=== PATIENT | male | born 1960 | race Caucasian/White ===

== ENCOUNTER 2018-01-27 09:15 | Emergency (ER) | payer BC, OTHER ==
[~2018-01-27] VITALS: Ht 175.3 cm; Wt 78.0 kg
--- OUTSIDE RECORDS SUMMARY | 2018-01-27 09:21 | XMS REPORT ---
Author Author LUIS GREEN Organization [facility] Address [address] [place] [address] Care Team Providers Care Employee Training Specialist Name Role Phone PETER LUIS Unavailable PROBLEMS Type Condition ICD9-CM Code HHG44-IA Code Onset Dates Condition Status SNOMED Code Problem Other emphysema J43.8 Active 32198258 Problem Uncomplicated alcohol dependence F10.20 Active 01415379 Problem Gastroesophageal reflux disease with esophagitis K21.0 Active 605159875 Problem Cigarette nicotine dependence without complication F17.210 Active 55613202 Problem Alcoholism F10.20 Active 1032891 Problem Depression, unspecified depression type F32.9 Active 61534971 Problem Pure hypercholesterolemia E78.00 Active 760707675 Problem Mood disorder F39 Active 52410577 ALLERGIES Substance Reaction Event Type Date Status Prozac 20 Mg Capsule Unknown Non Drug Allergy Aug, Active ENCOUNTERS Encounter Location Date Diagnosis [address] [address] Aug, Mood disorder F39 ; Pure hypercholesterolemia E78.00 and Gastroesophageal reflux disease with esophagitis K21.0 [place] [address] [address] May, [place] [address] [address] May, Bronchitis J40 ; Other emphysema J43.8 and Routine adult health maintenance Z00.00 [place] [address] [address] Apr, Routine adult health maintenance Z00.00 ; Pure hypercholesterolemia E78.00 and Cigarette nicotine dependence without complication F17.210 [place] [address] [address]- [address] September, [place] [address] [place] [id number] [place] [address]- 101[address] 14 Aug, 2016 [facility] [address] [place] [id number] [place] [address] 21789- 0606 Jul, Anxiety F41.9 [facility] [address] [place] [id number] [place] [address]19- 6258 May, Mood disorder F39 [facility] [address] [address]- [address] May, Mood disorder F39 and Alcoholism F10.20 [facility] [address] [place] [id number] [place] [address]- 1572 Apr, Depression, unspecified depression type F32.9 [facility] [address] [place] [id number] [place] [address] 16505- 3463 Mar, Other emphysema J43.8 [facility] [address] [place] [id number] [place] [address]9973- 3416 Feb, Uncomplicated alcohol dependence F10.20 [facility] [address] [place] [id number] [place] [address]99- 2233 September, Second degree hemorrhoids K64.1 [facility] [address] [place] [id number] [place] [address] 56224- 9918 September, [facility] [address] [place] [id number] [place] [address] 32130- 6907 14 Aug, 2014 [facility] [address] [place] [id number] [place] [address] 81321- 2045 Aug, [facility] [address] [place] [id number] [place] [address] 53315- 6821 Feb, [facility] [address] [place] [id number] [place] [address] 08271- 9036 Feb, [facility] [address] [place] [address] 9[address]40- 3952 Nov, [facility] [address] [facility] [id number] [place] [address] Nov, [facility] [place] [facility] [address] [id number] [place] [address] 5853 Aug, [facility] [place] [facility] [address] [id number] [place] [address] 87[address] Aug, [facility] [place] [facility] [address] [id number] [place] [address] 7964 Aug, [facility] [place] [facility] [address] [id number] [place] [address]- 5881 Aug, [facility] [place] [facility] [address] [id number] [place] [address]- 6293 Aug, [facility] [place] [facility] [address] [id number] [place] [address] 8577 Aug, [facility] [place] [facility] [address] [id number] [place] [address] 3766 Aug, [facility] [place] [facility] [address] [id number] [place] [address] 37[address] Aug, [facility] [place] [facility] [address] [id number] [place] [address]- 9453 Jul, [facility] [place] [facility] [address] [id number] [place] [address]- 3131 Jul, [facility] [place] [facility] [address] [id number] [place] [address]- 7354 Jul, [facility] [place] [facility] [address] [id number] [place] [address]- 4296 Jul, [facility] [place] [facility] [address] [id number] [place] [address]- 6738 Jul, [facility] [place] [facility] [address] [id number] [place] [address]- 2546 Jul, [facility] [place] [facility] [address] [id number] [place] [address]- 8536 Jul, [facility] [address] [facility] [id number] [place] [address]- 0317 Jul, [facility] [address] [facility] [id number] [place] [address]- 2386 Jul, [facility] [address] [facility] [id number] [place] [address]- 3468 Jul, [facility] [address] [facility] [id number] [place] [address]- 8725 Jun, [facility] [address] [facility] [id number] [place] [address]- 4156 Jun, [facility] [address] [facility] [id number] [place] [address]- 0467 Apr, [facility] [address] [address] 2147 Apr, [facility] [address] [facility] [id number], [place] [address]- 1254 Feb, [facility] [address] [place] [id number] [address] 290[address] Jan, [facility] [address] [id number] [address] 1416 Dec, [facility] [address] [place] [address]- 67[address] Dec, [facility] [address] [facility] [id number], [place] [address]- 9050 Nov, [facility] [address] [facility] [id number], [place] [address]- 6175 Nov, [facility] [address] [facility] [id number], [place] [address]- 7023 Jul, [facility] [address] [facility] [id number][place] [address]- 268[address] Jun, IMMUNIZATIONS No Known Immunizations SOCIAL HISTORY Never Assessed REASON FOR VISIT Physical, Having pain in RUQ for a few days. Notices more in the mornings. CBrumbackRN PLAN OF CARE VITAL SIGNS Height 71.3 in 2017-09-13 Weight 169.1 lbs 2017-09-13 Temperature 97.8 degrees Fahrenheit 2017-09-13 Heart Rate 58 bpm 2017-09-13 Respiratory Rate 18 2017-09-13 Oximetry on room air:97 % 2017-09-13 BMI 23.38 kg/m2 2017-09-13 Blood pressure systolic 130 mmHg 2017-09-13 Blood pressure diastolic 86 mmHg 2017-09-13 MEDICATIONS Medication Instructions Dosage Frequency Start Date End Date Duration Status Pravastatin Sodium 40 mg Orally Once a day 1 tablet 24h May, 30 day(s) Active Protonix 20 mg Orally Once a day 1 tablet 24h Aug, 30 day(s) Active HydrOXYzine HCl 25 MG TAKE ONE TABLET BY MOUTH ONCE DAILY NEEDED 30 Active Propranolol HCl 40 mg Orally Twice a day 1 tablet 12h 30 Active BusPIRone HCl 10 MG TAKE ONE TABLET BY MOUTH TWICE DAILY 60 Active RESULTS No Results PROCEDURES No Known procedures INSTRUCTIONS MEDICATIONS ADMINISTERED No Known Medications MEDICAL (GENERAL) HISTORY Type Description Date Medical History hypercholesterolemia Medical History anxiety
--- OUTSIDE RECORDS SUMMARY | 2018-01-27 09:21 | XMS REPORT ---
Author Author LUIS GREEN [facility] Address [address] [place] [address] Care Team Providers Care Shingles Roofer Helper Name Role Phone LUIS GREEN Unavailable PROBLEMS Type Condition ICD9-CM Code ZMP48-DA Code Onset Dates Condition Status SNOMED Code Problem Mood disorder F39 Active 17083790 Problem Alcoholism F10.20 Active 2206151 Problem Uncomplicated alcohol dependence F10.20 Active 56672698 Problem Depression, unspecified depression type F32.9 Active 43333939 Problem Other emphysema J43.8 Active 82336718 ALLERGIES No Information SOCIAL HISTORY Never Assessed PLAN OF CARE VITAL SIGNS MEDICATIONS Unknown Medications RESULTS No Results PROCEDURES No Known procedures IMMUNIZATIONS No Known Immunizations
--- OUTSIDE RECORDS SUMMARY | 2018-01-27 09:22 | XMS REPORT ---
Author Author KADE SIDHU Organization [facility] Address [address] [place] [address] Care Team Providers Care Sports Reporter Name Role Phone KADE SIDHU Unavailable PROBLEMS Type Condition ICD9-CM Code KTO79-FA Code Onset Dates Condition Status SNOMED Code Problem Other emphysema J43.8 Active 69325770 Problem Uncomplicated alcohol dependence F10.20 Active 31324605 Problem Gastroesophageal reflux disease with esophagitis K21.0 Active 585953219 Problem Cigarette nicotine dependence without complication F17.210 Active 33134279 Problem Alcoholism F10.20 Active 2852813 Problem Depression, unspecified depression type F32.9 Active 67499582 Problem Pure hypercholesterolemia E78.00 Active 082752266 Problem Mood disorder F39 Active 91851734 ALLERGIES No Information ENCOUNTERS Encounter Location Date Diagnosis [place] [id number] [address] Aug, Mood disorder F39 ; Pure hypercholesterolemia E78.00 and Gastroesophageal reflux disease with esophagitis K21.0 [facility] [address] [place] [id number] [place] [address]- [address] May, [facility] [address] [address]- [address] May, Bronchitis J40 ; Other emphysema J43.8 and Routine adult health maintenance Z00.00 [facility] [address] [place] [id number] [place] [address] 7[address]- 9950 Apr, Routine adult health maintenance Z00.00 ; Pure hypercholesterolemia E78.00 and Cigarette nicotine dependence without complication F17.210 [facility] [address] [place] [id number] [place] [address] 38774- 4002 September, [facility] [address] [address]- [address] 14 Aug, 2016 [facility] [address] [place] [id number] [place] [address] 29107- 6633 Jul, Anxiety F41.9 [facility] [address] [place] [id number] [place] [address] 80582- 3376 May, Mood disorder F39 [facility] [address] [place] [id number] [place] [address] 56349- 2702 May, Mood disorder F39 and Alcoholism F10.20 [facility] [address] [place] [id number] [place] [address] 18744- 5251 Apr, Depression, unspecified depression type F32.9 [facility] [address] [place] [id number] [place] [address] 99449- 9359 Mar, Other emphysema J43.8 [facility] [address] [place] [id number] [place] [address] 82012- 8937 Feb, Uncomplicated alcohol dependence F10.20 [facility] [address] [place] [id number] [place] [address] 34647- 3027 September, Second degree hemorrhoids K64.1 [facility] [address] [place] [id number] [place] [address] 49943- 0960 September, [facility] [address] [place] [id number] [place] [address] 56584- 5763 Aug, [facility] [address] [place] [id number] [place] [address] 88654- 8668 Aug, [facility] [address] [place] [id number] [place] [address] 97323- 8893 Feb, [facility] [address] [place] [id number] [place] [address] 32954- 1785 Feb, [facility] [address] [place] [id number] [place] [address] 93280- 2989 Nov, [facility] [address] [place] [id number] [place] [address] 53904- 0256 Nov, [facility] [place] [facility] [address] [id number] [place] [address] Aug, [facility] [place] [facility] [address] [id number] [place] [address]- 2238 Aug, [facility] [place] [facility] [address] [id number] [place] [address]- 1811 Aug, [facility] [place] [facility] [address] [id number] [place] [address]- 9519 Aug, [facility] [place] [facility] [address] [id number] [place] [address]- 7854 Aug, [facility] [place] [facility] [address] [id number] [place] [address] Aug, [facility] [place] [facility] [address] [id number] [place] [address]- 8655 Aug, [facility] [place] [facility] [address] [id number] [place] [address]- 7882 Aug, [facility] [place] [facility] [address] [id number] [place] [address]- 2240 Jul, [facility] [place] [facility] [address] [id number] [place] [address]- 3169 Jul, [facility] [place] [facility] [address] [id number] [place] [address]- 4486 Jul, [facility] [place] [facility] [address] [id number] [place] [address]- 5961 Jul, [facility] [place] [facility] [address] [id number] [place] [address]- 4046 Jul, [facility] [place] [facility] [address] [id number] [place] [address]- 2591 Jul, [facility] [place] [facility] [address] [id number] [place] [address]- 5007 Jul, [facility] [place] [facility] [address], [place] [address]- 2546 Jul, [facility] [address] [facility] [id number], [place] [address]- 6196 Jul, [facility] [address] [facility] [id number] [place] [address]- 2546 Jul, [facility] [address], [place] [address]- 0416 Jun, [facility] [address] [facility] [id number] [place] [address]- 0446 Jun, [facility] [address] [place] [address]- 6396 Apr, [facility] [address], [place] [address]- 2266 Apr, [facility] [address], [place] [address]- 6953 Feb, [facility] [address], [place] [address]- 5727 Jan, [facility] [address], [place] [address]- 0656 Dec, [facility] [address] [place] [id number], [place] [address]- 9556 Dec, [facility] [address] [place] [id number], [place] [address]- 2546 Nov, [facility] [address] [place] [id number], [place] [address]- 2546 Nov, [facility] [address] [place] [id number], [place] [address]- 6066 Jul, [facility] [address] [place] [id number], [place] [address]- 5506 Jun, IMMUNIZATIONS No Known Immunizations SOCIAL HISTORY Never Assessed REASON FOR VISIT PLAN OF CARE VITAL SIGNS MEDICATIONS Medication Instructions Dosage Frequency Start Date End Date Duration Status Pravastatin Sodium 40 mg Orally Once a day 1 tablet 24h May, 30 day(s) Active RESULTS No Results PROCEDURES No Known procedures INSTRUCTIONS MEDICATIONS ADMINISTERED No Known Medications MEDICAL (GENERAL) HISTORY Type Description Date Medical History hypercholesterolemia Medical History anxiety
--- OUTSIDE RECORDS SUMMARY | 2018-01-27 09:22 | XMS REPORT ---
Author Author LUIS GREEN [facility] Address [address] [place] [address] Care Team Providers Care Billing And Insurance Coordinator Name Role Phone LUIS GREEN Unavailable PROBLEMS Type Condition ICD9-CM Code EAD99-TS Code Onset Dates Condition Status SNOMED Code Problem Mood disorder F39 Active 26996769 Problem Alcoholism F10.20 Active 5166354 Problem Uncomplicated alcohol dependence F10.20 Active 07188572 Problem Depression, unspecified depression type F32.9 Active 78349216 Problem Other emphysema J43.8 Active 79722024 ALLERGIES Unknown Allergies SOCIAL HISTORY No smoking Hx information available PLAN OF CARE VITAL SIGNS MEDICATIONS Medication Instructions Dosage Frequency Start Date End Date Duration Status buspirone 10 mg by oral route Once a day 1 tablet 24h Dec, Active Atarax 25 mg by oral route every 6 hours as needed 2 tablet Feb, Active RESULTS No Results PROCEDURES No Known procedures IMMUNIZATIONS No Known Immunizations
--- OUTSIDE RECORDS SUMMARY | 2018-01-27 09:22 | XMS REPORT ---
Author Author LUIS GREEN [facility] Address [address] [place] [address] Care Team Providers Care Truck Driver Rubbish Collector Name Role Phone LUIS GREEN Unavailable PROBLEMS Type Condition ICD9-CM Code AYD46-YP Code Onset Dates Condition Status SNOMED Code Problem Mood disorder F39 Active 15837537 Problem Alcoholism F10.20 Active 1894953 Problem Uncomplicated alcohol dependence F10.20 Active 07616405 Problem Depression, unspecified depression type F32.9 Active 28956935 Problem Other emphysema J43.8 Active 09173133 ALLERGIES Substance Reaction Event Type Date Status Prozac 20 Mg Capsule Unknown Non Drug Allergy Jul, Active SOCIAL HISTORY Never Assessed PLAN OF CARE VITAL SIGNS Height 71.3 in 2016-08-13 Weight 167.6 lbs 2016-08-13 Temperature 98.1 degrees Fahrenheit 2016-08-13 Heart Rate 78 bpm 2016-08-13 Respiratory Rate 18 2016-08-13 BMI 23.18 kg/m2 2016-08-13 Blood pressure systolic 120 mmHg 2016-08-13 Blood pressure diastolic 78 mmHg 2016-08-13 MEDICATIONS Medication Instructions Dosage Frequency Start Date End Date Duration Status HydrOXYzine HCl 25 MG Orally Once a day 1 tablet as needed 24h May, Active BusPIRone HCl 10 mg Orally Twice a day 1 tablet 12h May, Active Propranolol HCl 40 mg Orally Twice a day 1 tablet 12h May, 30 day(s) Active RESULTS No Results PROCEDURES No Known procedures IMMUNIZATIONS No Known Immunizations
--- OUTSIDE RECORDS SUMMARY | 2018-01-27 09:22 | XMS REPORT ---
Author Author KADE SIDHU Organization [facility] Address [address] [place] [address] Care Team Providers Care Assistant Professor Of Spanish Name Role Phone KADE SIDHU Unavailable PROBLEMS Type Condition ICD9-CM Code ENO08-MU Code Onset Dates Condition Status SNOMED Code Problem Other emphysema J43.8 Active 46649195 Problem Uncomplicated alcohol dependence F10.20 Active 89615296 Problem Gastroesophageal reflux disease with esophagitis K21.0 Active 676731846 Problem Cigarette nicotine dependence without complication F17.210 Active 91788293 Problem Alcoholism F10.20 Active 3256654 Problem Depression, unspecified depression type F32.9 Active 90023301 Problem Pure hypercholesterolemia E78.00 Active 696916633 Problem Mood disorder F39 Active 65984637 ALLERGIES Substance Reaction Event Type Date Status Prozac 20 Mg Capsule Unknown Non Drug Allergy Apr, Active ENCOUNTERS Encounter Location Date Diagnosis [place] [address] [address] Aug, Mood disorder F39 ; Pure hypercholesterolemia E78.00 and Gastroesophageal reflux disease with esophagitis K21.0 [place] [address] [address] May, [facility] [address] [address] May, Bronchitis J40 ; Other emphysema J43.8 and Routine adult health maintenance Z00.00 [place] [address] [address] Apr, Routine adult health maintenance Z00.00 ; Pure hypercholesterolemia E78.00 and Cigarette nicotine dependence without complication F17.210 [place] [address] [address] September, [facility] [address] [place] [address]- [address] Aug, [facility] [address] [place] [id number] [place] [address]- 8988 Jul, Anxiety F41.9 [facility] [address] [place] [id number] [place] [address]- [address] May, Mood disorder F39 [facility] [address] [place] [id number] [place] [address]- [address] May, Mood disorder F39 and Alcoholism F10.20 [facility] [address] [place] [id number] [place] [address]- 140[address] Apr, Depression, unspecified depression type F32.9 [facility] [address] [place] [id number] [place] [address]- 20[address] Mar, Other emphysema J43.8 [facility] [address] [place] [id number] [place] [address]- 97[address] Feb, Uncomplicated alcohol dependence F10.20 [facility] [address] [place] [id number] [place] [address]- 18[address] September, Second degree hemorrhoids K64.1 [facility] [address] [place] [id number] [place] [address]- [address] September, [facility] [address] [place] [id number] [place] [address]70- 2146 Aug, [facility] [address] [place] [id number] [place] [address]70- 6772 Aug, [facility] [address] [place] [id number] [place] [address] 56[address]- 7039 Feb, [facility] [address] [place] [id number] [place] [address] 95134- 6559 Feb, [facility] [address] [place] [id number] [place] [address] 0[address]07- 1673 Nov, [facility] [place] [facility] [address] [id number] [place] [address] 44[address] Nov, [facility] [place] [facility] [address] [id number] [place] [address]- 17[address] Aug, [facility] [place] [facility] [address] [id number] [place] [address]- 5091 Aug, [facility] [place] [facility] [address] [id number] [place] [address]- 2878 Aug, [facility] [place] [facility] [address] [id number] [place] [address]- 4728 Aug, [facility] [place] [facility] [address] [id number] [place] [address]- 5157 Aug, [facility] [place] [facility] [address] [id number] [place] [address]- 3760 Aug, [facility] [place] [facility] [address] [id number] [place] [address]- 2425 Aug, [facility] [place] [facility] [address] [id number] [place] [address]- 2322 Aug, [facility] [place] [facility] [address] [id number] [place] [address]- 6427 Jul, [facility] [place] [facility] [address] [id number] [place] [address]- 0786 Jul, [facility] [place] [facility] [address] [id number] [place] [address]- 7905 Jul, [facility] [place] [facility] [address] [id number] [place] [address]- 1471 Jul, [facility] [place] [facility] [address] [id number] [place] [address]- 7168 Jul, [facility] [place] [facility] [address] [id number] [place] [address]- 2236 Jul, [facility] [place] [facility] [address] [id number] [place] [address]- 4858 Jul, [facility] [address] [facility] [id number] [place] [address]- 9691 Jul, [facility] [address] [facility] [id number] [place] [address] 2546 Jul, [facility] [address] [facility] [id number] [place] [address] 2546 Jul, [facility] [address] [facility] [id number] [place] [address]- 8[address] Jun, [facility] [address] [facility] [id number] [place] [address]- 9423 Jun, [facility] [address] [facility] [id number] [place] [address]- 0045 Apr, [facility] [address] [id number] [address] Apr, [facility] [address] [facility] [id number], [place] [address]- 1255 Feb, [facility] [address] [facility] [id number], [place] [address]- 9197 Jan, [facility] [address] [facility] [id number], [place] [address]- 6[address] Dec, [facility] [address] [id number] [address]- 7936 Dec, [facility] [address] [facility] [id number], [place] [address] 2544 Nov, [facility] [address] [facility] [id number], [place] [address]- 0[address] Nov, [facility] [address] [facility] [id number], [place] [address]- 75[address] Jul, [facility] [address] [facility] [id number], [place] [address]- 6934 Jun, IMMUNIZATIONS No Known Immunizations SOCIAL HISTORY Never Assessed REASON FOR VISIT Work physical---DBennettRJacob PLAN OF CARE Activity Details Follow Up Refgular appt Reason: VITAL SIGNS Height 71.3 in 2017-05-21 Weight 165 lbs 2017-05-21 Temperature 98.3 degrees Fahrenheit 2017-05-21 Heart Rate 70 bpm 2017-05-21 Respiratory Rate 20 2017-05-21 BMI 22.82 kg/m2 2017-05-21 Blood pressure systolic 144 mmHg 2017-05-21 Blood pressure diastolic 80 mmHg 2017-05-21 MEDICATIONS Medication Instructions Dosage Frequency Start Date End Date Duration Status Propranolol HCl 40 mg Orally Twice a day 1 tablet 12h 30 Active PredniSONE 20 mg 2 tablet by Oral route 1 time per day for 5 day(s) Jul, Not-Taking HydrOXYzine HCl 25 MG Orally Once a day 1 tablet as needed 24h 30 Active Diclofenac Sodium 75 mg 1 tablet by Oral route 2 times per day PRN Aug, Not-Taking BusPIRone HCl 10 mg Orally Twice a day 1 tablet 12h May, Active Benadryl 25 mg 2 capsule by Oral route 1 time per day PRN bedtime Jul, Not-Taking Triamcinolone Acetonide 0.1 % 1 Ointment by Topical route 2 times per day PRN apply thin layer to affected area BID Jul, Not-Taking Ipratropium-Albuterol 20-100 MCG/ACT Inhalation Four times a day 1 puff 6h Mar, Not-Taking RESULTS No Results PROCEDURES No Known procedures INSTRUCTIONS MEDICATIONS ADMINISTERED No Known Medications MEDICAL (GENERAL) HISTORY Type Description Date Medical History hypercholesterolemia Medical History anxiety
--- OUTSIDE RECORDS SUMMARY | 2018-01-27 09:22 | XMS REPORT ---
Author CHIP Andujar Organization [employer] Address Unknown Phone Unavailable Care Team Providers Care Ob/Gyn Nurse Name Role Phone CHIP MCFADDEN CP Unavailable Allergies No Known Allergies Problems Problem Type Condition Code Onset Dates Condition Status Problem Screening for lipoid disorders V77.91 Active Assessment Uncomplicated alcohol dependence F10.20 Active Problem Scabies 133.0 Active Problem Personal history of tobacco use, presenting hazards to health V15.82 Active Problem Uncomplicated alcohol dependence F10.20 Active Problem Rash and other nonspecific skin eruption 782.1 Active Problem Blood in stool 578.1 Active Problem Loss of weight 783.21 Active Problem Contact dermatitis and other eczema, due to unspecified cause 692.9 Active Medications No Known Medications Procedures Procedure Coding System Code Date Psychotherapy, patient &/family, 30 minutes, established patient CPT-4 29470 Mar 07, 2016 Results No Known Results Summary Purpose [employer] Submission
--- OUTSIDE RECORDS SUMMARY | 2018-01-27 09:22 | XMS REPORT ---
Author Author ABRAHAM ELI [facility] Address [address] [place] [address] Care Team Providers Care Nutrition Counselor Name Role Phone ABRAHAM ELI Unavailable PROBLEMS Type Condition ICD9-CM Code ZHN71-TL Code Onset Dates Condition Status SNOMED Code Problem Screening for lipoid disorders V77.91 Active 602050970 Problem Rash and other nonspecific skin eruption 782.1 Active 069569742 Problem Blood in stool 578.1 Active 725649587 Assessment Other emphysema J43.8 Mar, Active 09554185 Problem Other emphysema J43.8 Active 00522514 Problem Uncomplicated alcohol dependence F10.20 Active 80227436 Problem Loss of weight 783.21 Active 238860992 Problem Contact dermatitis and other eczema, due to unspecified cause 692.9 Active 03312161 Problem Scabies 133.0 Active 401770815 Problem Personal history of tobacco use, presenting hazards to health V15.82 Active 0647132334017 ALLERGIES Substance Reaction Event Type Date Status Prozac 20 Mg Capsule Unknown Non Drug Allergy Mar, Active SOCIAL HISTORY No smoking Hx information available PLAN OF CARE VITAL SIGNS Height 71 in 2016-04-12 Weight 160.8 lbs 2016-04-12 Heart Rate 78 bpm 2016-04-12 Respiratory Rate 18 2016-04-12 BMI 22.42 kg/m2 2016-04-12 Blood pressure systolic 112 mmHg 2016-04-12 Blood pressure diastolic 80 mmHg 2016-04-12 MEDICATIONS Medication Instructions Dosage Frequency Start Date End Date Duration Status Ipratropium-Albuterol 20-100 MCG/ACT Inhalation Four times a day 1 puff 6h Mar, Active RESULTS No Results PROCEDURES Procedure Date Ordered Related Diagnosis Body Site Office Visit, Est Pt., Level 3 Apr 12, 2016 IMMUNIZATIONS No Known Immunizations
--- OUTSIDE RECORDS SUMMARY | 2018-01-27 09:22 | XMS REPORT ---
Author Author KADE SIDHU Organization [facility] Address [address] [place] [address] Care Team Providers Care Client Experience Administrator Name Role Phone KADE SIDHU Unavailable PROBLEMS Type Condition ICD9-CM Code SUB73-RY Code Onset Dates Condition Status SNOMED Code Problem Other emphysema J43.8 Active 52519943 Problem Uncomplicated alcohol dependence F10.20 Active 57178528 Problem Gastroesophageal reflux disease with esophagitis K21.0 Active 063781615 Problem Cigarette nicotine dependence without complication F17.210 Active 38752421 Problem Alcoholism F10.20 Active 2259323 Problem Depression, unspecified depression type F32.9 Active 62907221 Problem Pure hypercholesterolemia E78.00 Active 022700561 Problem Mood disorder F39 Active 35546385 ALLERGIES Substance Reaction Event Type Date Status Prozac 20 Mg Capsule Unknown Non Drug Allergy May, Active ENCOUNTERS Encounter Location Date Diagnosis [place] [address] [address] Aug, Mood disorder F39 ; Pure hypercholesterolemia E78.00 and Gastroesophageal reflux disease with esophagitis K21.0 [place] [address] [address] May, [facility] [address] [address] May, Bronchitis J40 ; Other emphysema J43.8 and Routine adult health maintenance Z00.00 [place] [address] [address]- [address] Apr, Routine adult health maintenance Z00.00 ; Pure hypercholesterolemia E78.00 and Cigarette nicotine dependence without complication F17.210 [place] [address] [address]- [address] September, [facility] [address] [place] [address]- 4391 Aug, [facility] [address] [place] [id number] [place] [address] 88044- 5182 Jul, Anxiety F41.9 [facility] [address] [place] [id number] [place] [address]358- 4087 May, Mood disorder F39 [facility] [address] [place] [id number] [place] [address] 6[address]- 0821 May, Mood disorder F39 and Alcoholism F10.20 [facility] [address] [place] [id number] [place] [address]- 3[address] Apr, Depression, unspecified depression type F32.9 [facility] [address] [place] [id number] [place] [address] 6[address]- 1510 Mar, Other emphysema J43.8 [facility] [address] [place] [id number] [place] [address]- 5791 Feb, Uncomplicated alcohol dependence F10.20 [facility] [address] [place] [id number] [place] [address] 90809- 9901 September, Second degree hemorrhoids K64.1 [facility] [address] [place] [id number] [place] [address] 69732- 0144 September, [facility] [address] [place] [id number] [place] [address] 11087- 7036 Aug, [facility] [address] [place] [id number] [place] [address] 34716- 2338 Aug, [facility] [address] [place] [id number] [place] [address] 40070- 0574 Feb, [facility] [address] [place] [id number] [place] [address] 88559- 8852 Feb, [facility] [address] [place] [id number] [place] [address]78- 5450 Nov, [facility] [place] [facility] [address] [id number] [place] [address]- 9106 Nov, [facility] [place] [facility] [address] [id number] [place] [address]- 1433 Aug, [facility] [place] [facility] [address] [id number] [place] [address]- 0676 Aug, [facility] [place] [facility] [address] [id number] [place] [address]- 4049 Aug, [facility] [place] [facility] [address] [id number] [place] [address]- 0153 Aug, [facility] [place] [facility] [address] [id number] [place] [address]- 8996 Aug, [facility] [place] [facility] [address] [id number] [place] [address]- 3458 Aug, [facility] [place] [facility] [address] [id number] [place] [address]- 9488 Aug, [facility] [place] [facility] [address] [id number] [place] [address]- 8714 Aug, [facility] [place] [facility] [address] [id number] [place] [address]- 1135 Jul, [facility] [place] [facility] [address] [id number] [place] [address]- 5625 Jul, [facility] [place] [facility] [address] [id number] [place] [address]- 0876 Jul, [facility] [place] [facility] [address] [id number] [place] [address]- 2646 Jul, [facility] [place] [facility] [address] [id number] [place] [address]- 5465 Jul, [facility] [place] [facility] [address] [id number] [place] [address]- 7944 Jul, [facility] [place] [facility] [address] [id number] [place] [address]- 0888 Jul, [facility] [address] [facility] [id number] [place] [address]- 3549 Jul, [facility] [address] [facility] [id number] [place] [address] 2546 Jul, [facility] [address] [facility] [id number] [place] [address] 2546 Jul, [facility] [address] [facility] [id number] [place] [address]- 6186 Jun, [facility] [address] [facility] [id number] [place] [address]- 4994 Jun, [facility] [address] [facility] [id number] [place] [address]- 0693 Apr, [facility] [address] [id number] [address]- [address] Apr, [facility] [address] [facility] [id number], [place] [address]- 2479 Feb, [facility] [address] [facility] [id number], [place] [address]- 7054 Jan, [facility] [address] [facility] [id number], [place] [address]- 2136 Dec, [facility] [address] [id number], [place] [address]- 8676 Dec, [facility] [address] [facility] [id number], [place] [address] 2547 Nov, [facility] [address] [facility] [id number], [place] [address]- 2897 Nov, [facility] [address] [facility] [id number], [place] [address]- 4125 Jul, [facility] [address] [facility] [id number], [place] [address]- [address]45 Jun, IMMUNIZATIONS No Known Immunizations SOCIAL HISTORY Never Assessed REASON FOR VISIT cough x 1 week, low grade fever x 1 day. Adonay PLAN OF CARE Activity Details Follow Up 6 Months Reason: VITAL SIGNS Height 71.3 in 2017-06-14 Weight 159.5 lbs 2017-06-14 Temperature 98.8 degrees Fahrenheit 2017-06-14 Heart Rate 56 bpm 2017-06-14 Respiratory Rate 20 2017-06-14 BMI 22.06 kg/m2 2017-06-14 Blood pressure systolic 140 mmHg 2017-06-14 Blood pressure diastolic 86 mmHg 2017-06-14 MEDICATIONS Medication Instructions Dosage Frequency Start Date End Date Duration Status PredniSONE 50 mg Orally Once a day 1 tablet 24h May, May, 07 days Active Propranolol HCl 40 mg Orally Twice a day 1 tablet 12h 30 Active Zithromax Z-Clifton 250 MG Orally Once a day 2 tablets on the first day, then 1 tablet daily for 4 days 24h May, May, 5 day(s) Active BusPIRone HCl 10 mg Orally Twice a day 1 tablet 12h 13 May, 2016 Active HydrOXYzine HCl 25 MG Orally Once a day 1 tablet as needed 24h 30 Active RESULTS No Results PROCEDURES Procedure Date Ordered Result Body Site LIPID PANEL Jun 14, 2017 VENIPUNCT, ROUTINE* Jun 14, 2017 COMPREHEN METABOLIC PANEL Jun 14, 2017 INSTRUCTIONS MEDICATIONS ADMINISTERED No Known Medications MEDICAL (GENERAL) HISTORY Type Description Date Medical History hypercholesterolemia Medical History anxiety
--- OUTSIDE RECORDS SUMMARY | 2018-01-27 09:22 | XMS REPORT ---
Author Author LUIS GREEN Organization [facility] Address [address] [place] [address] Care Team Providers Care Drier Tender Name Role Phone LUIS GREEN Unavailable PROBLEMS Type Condition ICD9-CM Code [id number] Code Onset Dates Condition Status SNOMED Code Problem Mood disorder F39 Active 55505069 Problem Alcoholism F10.20 Active 8505325 Problem Uncomplicated alcohol dependence F10.20 Active 69534935 Problem Depression, unspecified depression type F32.9 Active 49259384 Problem Other emphysema J43.8 Active 85576817 ALLERGIES Substance Reaction Event Type Date Status Prozac 20 Mg Capsule Unknown Non Drug Allergy May, Active SOCIAL HISTORY No smoking Hx information available PLAN OF CARE Activity Details Follow Up 4 Weeks Reason:mood disorder VITAL SIGNS Height 71.3 in 2016-06-08 Weight 170.0 lbs 2016-06-08 Temperature 98.1 degrees Fahrenheit 2016-06-08 Heart Rate 80 bpm 2016-06-08 Respiratory Rate 18 2016-06-08 BMI 23.51 kg/m2 2016-06-08 Blood pressure systolic 130 mmHg 2016-06-08 Blood pressure diastolic 85 mmHg 2016-06-08 MEDICATIONS Medication Instructions Dosage Frequency Start Date End Date Duration Status Atarax 25 mg by oral route every 6 hours as needed 2 tablet Feb, Active HydrOXYzine HCl 25 MG Orally Once a day 1 tablet as needed 24h May, Active BusPIRone HCl 10 mg Orally Twice a day 1 tablet 12h May, Active Propranolol HCl 40 mg Orally Twice a day 1 tablet 12h May, 30 day(s) Active buspirone 10 mg by oral route Once a day 1 tablet 24h Dec, Active RESULTS No Results PROCEDURES Procedure Date Ordered Related Diagnosis Body Site Office Visit, Est Pt., Level 3 Jun 08, 2016 IMMUNIZATIONS No Known Immunizations
--- OUTSIDE RECORDS SUMMARY | 2018-01-27 09:23 | XMS REPORT ---
Author Author LUIS GREEN [facility] Address [address] [place] [address] Care Team Providers Care Process Inspector Name Role Phone LUIS GREEN Unavailable PROBLEMS Type Condition ICD9-CM Code BTO83-CF Code Onset Dates Condition Status SNOMED Code Problem Mood disorder F39 Active 77047613 Problem Alcoholism F10.20 Active 0561406 Problem Uncomplicated alcohol dependence F10.20 Active 91745274 Problem Depression, unspecified depression type F32.9 Active 46144495 Problem Other emphysema J43.8 Active 38883263 ALLERGIES Unknown Allergies SOCIAL HISTORY No smoking Hx information available PLAN OF CARE VITAL SIGNS MEDICATIONS Unknown Medications RESULTS Name Result Date Reference Range TSH 2016-06-22 TSH 0.832 0.450-4.500 CBC 2016-06-22 WBC 7.7 3.4-10.8 RBC 4.31 4.14-5.80 Hemoglobin 15.8 12.6-17.7 Hematocrit 45.0 37.5-51.0 MCV 104 79-97 MCH 36.7 26.6-33.0 MCHC 35.1 31.5-35.7 RDW 12.5 12.3-15.4 Platelets 194 150-379 Neutrophils 55 Lymphs 27 Monocytes 11 Eos 7 Basos 0 Neutrophils (Absolute) 4.2 1.4-7.0 Lymphs (Absolute) 2.1 0.7-3.1 Monocytes(Absolute) 0.8 0.1-0.9 Eos (Absolute) 0.5 0.0-0.4 Baso (Absolute) 0.0 0.0-0.2 Immature Granulocytes 0 Immature Grans (Abs) 0.0 0.0-0.1 LIPID PANEL 2016-06-22 Cholesterol, Total 230 100-199 Triglycerides 91 0-149 HDL Cholesterol 75 >39 VLDL Cholesterol Rogers 18 5-40 LDL Cholesterol Calc 137 0-99 Comment: CMP 2016-06-22 Glucose, Serum 91 65-99 BUN 12 6-24 Creatinine, Serum 0.86 0.76-1.27 eGFR If NonAfricn Am 97 >59 eGFR If Africn Am 112 >59 BUN/Creatinine Ratio 14 9-20 Sodium, Serum 141 134-144 Potassium, Serum 4.8 3.5-5.2 Chloride, Serum 102 96-106 Carbon Dioxide, Total 23 18-29 Calcium, Serum 8.4 8.7-10.2 Protein, Total, Serum 6.5 6.0-8.5 Albumin, Serum 4.4 3.5-5.5 Globulin, Total 2.1 1.5-4.5 A/G Ratio 2.1 1.1-2.5 Bilirubin, Total 0.6 0.0-1.2 Alkaline Phosphatase, S 57 39-117 AST (SGOT) 16 0-40 ALT (SGPT) 17 0-44 PROCEDURES Procedure Date Ordered Related Diagnosis Body Site ASSAY THYROID STIM HORMONE Jun 22, 2016 COMPLETE CBC W/AUTO DIFF WBC Jun 22, 2016 COMPREHEN METABOLIC PANEL Jun 22, 2016 LIPID PANEL Jun 22, 2016 VENIPUNCT, ROUTINE* Jun 22, 2016 IMMUNIZATIONS No Known Immunizations
--- OUTSIDE RECORDS SUMMARY | 2018-01-27 09:23 | XMS REPORT | Continuity of Care Document ---
Author Author [facility] Address Unknown Phone Unavailable Allergies Active Description Code Type Severity Reaction Onset Reported/Identified Relationship to Patient Clinical Status Yes Prozac 20 mg capsule Drug Allergy N/A N/A 12/29/2012 Medications There is no data. Problems Date Dx Coded Attending Type Code Diagnosis Diagnosed By 07/23/2012 300.00 ANXIETY UNSPEC 07/23/2012 V77.91 SCREENING FOR LIPOID DISORDERS 07/23/2012 300.00 ANXIETY UNSPEC 07/23/2012 V77.91 SCREENING FOR LIPOID DISORDERS 07/23/2012 300.00 ANXIETY UNSPEC 07/23/2012 V77.91 SCREENING FOR LIPOID DISORDERS 07/23/2012 300.00 ANXIETY UNSPEC 07/23/2012 V77.91 SCREENING FOR LIPOID DISORDERS 07/23/2012 ZAYNAB STEIN TESSIE K 300.00 ANXIETY UNSPEC 07/23/2012 ZAYNAB STEIN TESSIE K V77.91 SCREENING FOR LIPOID DISORDERS 07/23/2012 ABRAHAM ELI APRN 300.00 ANXIETY UNSPEC 07/23/2012 ABRAHAM ELI APRN S V77.91 SCREENING FOR LIPOID DISORDERS 07/23/2012 LUIS GREEN APRN 300.00 ANXIETY UNSPEC 07/23/2012 LUIS GREEN APRN V77.91 SCREENING FOR LIPOID DISORDERS 07/23/2012 WORTHY DO TESSIE K 300.00 ANXIETY UNSPEC 07/23/2012 ZAYNAB STEIN TESSIE K V77.91 SCREENING FOR LIPOID DISORDERS 07/23/2012 WORTHY DO TESSIE K 300.00 ANXIETY UNSPEC 07/23/2012 ZAYNAB STEIN TESSIE K V77.91 SCREENING FOR LIPOID DISORDERS 07/23/2012 LUIS GREEN APRN 300.00 ANXIETY UNSPEC 07/23/2012 LUIS GREEN APRN V77.91 SCREENING FOR LIPOID DISORDERS 07/23/2012 WORTHY DO TESSIE K 300.00 ANXIETY UNSPEC 07/23/2012 ZAYNAB STEIN TESSIE K V77.91 SCREENING FOR LIPOID DISORDERS 07/23/2012 ALVARO MOSLEYS, BOBBY 300.00 ANXIETY UNSPEC 07/23/2012 JOHN MELANYS, BOBBY V77.91 SCREENING FOR LIPOID DISORDERS 12/29/2012 783.21 LOSS OF WEIGHT 12/29/2012 783.21 LOSS OF WEIGHT 12/29/2012 WORTHY DO TESSIE K 783.21 LOSS OF WEIGHT 12/29/2012 ABRAHAM ELI APRN S 783.21 LOSS OF WEIGHT 12/29/2012 LUIS GREEN APRN 783.21 LOSS OF WEIGHT 12/29/2012 WORTHY DO, TESSIE K 783.21 LOSS OF WEIGHT 12/29/2012 WORTHY DO, TESSIE K 783.21 LOSS OF WEIGHT 12/29/2012 LUIS GREEN APRN 783.21 LOSS OF WEIGHT 12/29/2012 WORTHY DO, TESSIE K 783.21 LOSS OF WEIGHT 12/29/2012 BOBBY JOHN DDS 783.21 LOSS OF WEIGHT 02/16/2013 WORTHY DO TESSIE K 578.1 HEMATOCHEZIA 02/16/2013 ABRAHAM ELI APRN S 578.1 HEMATOCHEZIA 02/16/2013 LUIS GREEN APRN 578.1 HEMATOCHEZIA 02/16/2013 WORTHY DO, TESSIE K 578.1 HEMATOCHEZIA 02/16/2013 WORTHY DO, TESSIE K 578.1 HEMATOCHEZIA 02/16/2013 LUIS GREEN APRN 578.1 HEMATOCHEZIA 02/16/2013 WORTHY DO, TESSIE K 578.1 HEMATOCHEZIA 02/16/2013 BOBBY JOHN DDS 578.1 HEMATOCHEZIA 04/28/2013 ABRAHAM ELI APRN S V15.82 Nicotine abuse 04/28/2013 LUIS GREEN APRN V15.82 Nicotine abuse 04/28/2013 WORTHY DO TESSIE K V15.82 Nicotine abuse 04/28/2013 WORTHY DO, TESSIE K V15.82 Nicotine abuse 04/28/2013 LUIS GREEN APRN V15.82 Nicotine abuse 04/28/2013 WORTHY DO TESSIE K V15.82 Nicotine abuse 04/28/2013 BOBBY JOHN DDS V15.82 Nicotine abuse 07/16/2013 LUIS GREEN APRN 782.1 RASH 07/16/2013 WORTHY DO, TESSIE K 782.1 RASH 07/16/2013 WORTHY DO, TESSIE K 782.1 RASH 07/16/2013 LUIS GREEN APRN 782.1 RASH 07/16/2013 WORTHY DO, TESSIE K 782.1 RASH 07/16/2013 JOHN DDS, BOBBY 782.1 RASH 07/25/2013 LUIS GREEN APRN 133.0 SCABIES 07/25/2013 WORTHY DO, TESSIE K 133.0 SCABIES 07/25/2013 WORTHY DO, TESSIE K 133.0 SCABIES 07/25/2013 LUIS GREEN APRN T 133.0 SCABIES 07/25/2013 WORTHY DO, TESSIE K 133.0 SCABIES 07/25/2013 BOBBY JOHN DDS 133.0 SCABIES 08/10/2013 WORTHY DO, TESSIE K 692.9 CONTACT DERMATITIS AND OTHER ECZEMA UNSPECIFIED CAUSE 08/10/2013 LAURENCE WORTHY DOA K 692.9 CONTACT DERMATITIS AND OTHER ECZEMA UNSPECIFIED CAUSE 08/10/2013 LUIS GREEN APRN 692.9 CONTACT DERMATITIS AND OTHER ECZEMA UNSPECIFIED CAUSE 08/10/2013 WORTHY DO TESSIE K 692.9 CONTACT DERMATITIS AND OTHER ECZEMA UNSPECIFIED CAUSE 08/10/2013 BOBBY JOHN DDS 692.9 CONTACT DERMATITIS AND OTHER ECZEMA UNSPECIFIED CAUSE Procedures Code Description [place] [address] XRAY CHEST 2 VIEW 12/30/2012 38775 BIOPSY SKIN LESION (SINGLE) 08/25/2013 [place] 08/25/2013 72417 ROUTINE VENIPUNCTURE 09/17/2013 60756 CBC 09/17/2013 4040301 GFR CALC (RESULT ONLY) 09/17/2013 68005 CMP 09/17/2013 Results Test Result Range CBC With Differential/Platelet - 06/22/16 08:52 WBC 7.7 x10E3/uL 3.4-10.8 RBC 4.31 x10E6/uL 4.14-5.80 Hemoglobin 15.8 g/dL 12.6-17.7 Hematocrit 45.0 % 37.5-51.0 MCV 104 fL 79-97 MCH 36.7 pg 26.6-33.0 MCHC 35.1 g/dL 31.5-35.7 RDW 12.5 % 12.3-15.4 Platelets 194 x10E3/uL 150-379 Neutrophils 55 % Lymphs 27 % Monocytes 11 % Eos 7 % Basos 0 % Neutrophils (Absolute) 4.2 x10E3/uL 1.4-7.0 Lymphs (Absolute) 2.1 x10E3/uL 0.7-3.1 Monocytes(Absolute) 0.8 x10E3/uL 0.1-0.9 Eos (Absolute) 0.5 x10E3/uL 0.0-0.4 Baso (Absolute) 0.0 x10E3/uL 0.0-0.2 Immature Granulocytes 0 % Immature Grans (Abs) 0.0 x10E3/uL 0.0-0.1 Comp. Metabolic Panel (14) - 06/22/16 08:52 Glucose, Serum 91 mg/dL 65-99 BUN 12 mg/dL 6-24 Creatinine, Serum 0.86 mg/dL 0.76-1.27 eGFR If NonAfricn Am 97 mL/min/1.73 >59 eGFR If Africn Am 112 mL/min/1.73 >59 BUN/Creatinine Ratio 14 9-20 Sodium, Serum 141 mmol/L 134-144 Potassium, Serum 4.8 mmol/L 3.5-5.2 Chloride, Serum 102 mmol/L 96-106 Carbon Dioxide, Total 23 mmol/L 18-29 Calcium, Serum 8.4 mg/dL 8.7-10.2 Protein, Total, Serum 6.5 g/dL 6.0-8.5 Albumin, Serum 4.4 g/dL 3.5-5.5 Globulin, Total 2.1 g/dL 1.5-4.5 A/G Ratio 2.1 1.1-2.5 Bilirubin, Total 0.6 mg/dL 0.0-1.2 Alkaline Phosphatase, S 57 IU/L 39-117 AST (SGOT) 16 IU/L 0-40 ALT (SGPT) 17 IU/L 0-44 Lipid Panel - 06/22/16 08:52 Cholesterol, Total 230 mg/dL 100-199 Triglycerides 91 mg/dL 0-149 HDL Cholesterol 75 mg/dL >39 VLDL Cholesterol Rogers 18 mg/dL 5-40 LDL Cholesterol Calc 137 mg/dL 0-99 TSH - 06/22/16 08:52 TSH 0.832 uIU/mL 0.450-4.500 LIPID PANEL - 06/14/17 11:53 CHOLESTEROL, TOTAL 196 mg/dL <200 HDL CHOLESTEROL 64 mg/dL >40 TRIGLYCERIDES 103 mg/dL <150 LDL-CHOLESTEROL 111 mg/dL (calc) NRG CHOL/HDLC RATIO 3.1 (calc) <5.0 NON HDL CHOLESTEROL 132 mg/dL (calc) <130 Encounters ACCT No. Visit Date/Time Discharge Status Pt. Type Provider Facility Loc./Unit Complaint [id number] 02/03/2014 09:52:00 02/03/2014 23:59:59 CLS Outpatient ALVARO HENDERSON BOBBY [id number] 09/17/2013 08:19:00 09/17/2013 23:59:59 CLS Outpatient TESSIE WORTHY DO [id number] 08/25/2013 13:20:00 08/25/2013 23:59:59 CLS Outpatient LUIS GREEN APRN [id number] 08/21/2013 15:26:00 08/21/2013 23:59:59 CLS Outpatient TESSIE WORTHY DO [id number] 08/10/2013 15:29:00 08/10/2013 23:59:59 CLS Outpatient TESSIE WORTHY DO [id number] 07/25/2013 10:44:00 07/25/2013 23:59:59 CLS Outpatient LUIS GREEN APRN [id number] 04/28/2013 15:50:00 04/28/2013 23:59:59 CLS Outpatient ABRAHAM ELI APRN [id number] 02/16/2013 14:19:00 02/16/2013 23:59:59 CLS Outpatient TESSIE WORTHY DO [id number] 08/21/2012 09:48:00 08/21/2012 23:59:59 CLS Outpatient [id number] 07/23/2012 13:59:00 07/23/2012 23:59:59 CLS Outpatient [id number] 01/09/2013 09:07:00 Document Registration [id number] 12/29/2012 14:50:00 Document Registration [id number] 09/13/2017 09:00:00 09/13/2017 23:59:59 CLS Outpatient LUIS GREEN APRN [facility] [id number] 06/14/2017 11:20:00 Document Registration [id number] 06/23/2016 08:36:00 Document Registration
--- NOTE | 2018-01-27 09:58 | ED Lower Extremity ---
General Chief Complaint: Lower Extremity Stated Complaint: RT LEG SWOLLEN Nursing Triage Note: PT STATES HE HIT HIS RT LOWER LEG ON 01/20, CC TODAY OF PAIN AND SWELLING IN THAT AREA. Nursing Sepsis Screen: No Definite Risk Source: patient, other Exam Limitations: no limitations History of Present Illness Date Seen by Provider: Jan 27, 2018 Time Seen by Provider: 09:41 Initial Comments Patient presents to ER by private conveyance with chief complaint that he struck the right anterior willis against something at work about 2 days ago and broke open the skin and since and he is got some redness swelling and that's gotten worse last couple days. No fevers chills nausea vomiting. No history of blood clots, blood thinners. He has not any heart disease area is having no chest pain or shortness of breath. Allergies and Home Medications Patient Home Medication List Home Medication List Reviewed: Yes Review of Systems Constitutional: No chills, No fever EENTM: No hearing loss, No ear pain Respiratory: No cough, No short of breath Cardiovascular: No chest pain, No edema Gastrointestinal: No abdominal pain, No constipation, No diarrhea, No nausea Genitourinary: No discharge, No dysuria Past Mkmenhv-Btfzvx-Axugxm Hx Patient Social History Alcohol Use: Rarely Uses Alcohol Beverage of Choice: Beer Recreational Drug Use: No Smoking Status: Current Everyday Smoker Type Used: Cigarettes Recent Foreign Travel: No Contact w/Someone Who Travel: No Recent Infectious Disease Expo: No Recent Hopitalizations: No Seasonal Allergies Seasonal Allergies: No Past Medical History Surgeries: Yes (LT KNEE SCOPE) Orthopedic Respiratory: No Cardiac: No Neurological: No Genitourinary: No Gastrointestinal: No Musculoskeletal: No Endocrine: No HEENT: No Cancer: No Psychosocial: Yes Anxiety, Depression Integumentary: No Physical Exam Vital Signs Vital Signs - First Documented 01/27/18 09:31 Temp 97.7 Pulse 89 Resp 20 B/P (MAP) 141/84 (103) Pulse Ox 97 O2 Delivery Room Air Capillary Refill : Less Than 3 Seconds Height, Weight, BMI Height: 5'9.00" Weight: 172lbs. oz. 78.303511st; BMI Method:Stated General Appearance: WD/WN, no apparent distress HEENT: PERRL/EOMI, pharynx normal Cardiovascular: normal peripheral pulses, regular rate, rhythm Respiratory: no respiratory distress, no accessory muscle use Hips: bilateral hip non-tender, bilateral hip normal inspection, bilateral hip normal range of motion, bilateral hip no evidence of injury Legs: left leg non-tender, left leg normal inspection; right leg normal range of motion; left leg no evidence of injury; right leg pain, right leg soft tissue tenderness, right leg swelling, right leg other (mild erythema around the ankle) Knees: bilateral knee non-tender, bilateral knee normal inspection, bilateral knee normal range of motion, bilateral knee no evidence of injury Ankles: right ankle soft tissue tenderness, right ankle swelling (erythema) Feet: right foot soft tissue tenderness, right foot swelling (erythema) Neurologic/Psychiatric: alert, oriented x 3 Progress/Results/Core Measures Results/Orders Vital Signs/I&O 01/27/18 09:31 Temp 97.7 Pulse 89 Resp 20 B/P (MAP) 141/84 (103) Pulse Ox 97 O2 Delivery Room Air Blood Pressure Mean: 103 Progress Progress Note : Time: 09:58 Progress Note History and clinical exam consistent with cellulitis of the right lower extremity. We'll put him on Keflex having elevated take a couple days off work and follow up with the PCP later this week. Departure Impression Primary Impression: Cellulitis Qualified Codes: L03.818 - Cellulitis of other sites Disposition: 01 HOME, SELF-CARE Condition: Stable Departure-Patient Inst. Decision time for Depature: 10:02 Referrals: KADE SIDHU MD (PCP/Family) Primary Care Physician Patient Instructions: Cellulitis (Skin Infection), Adult (DC) Add. Discharge Instructions: Take the Keflex one capsule 4 times a day. Follow-up with a primary care doctor later this week for following up next week early for reexamination. If you are unable to tolerate the medicine or start having fevers chills nausea vomiting, chest pain or shortness of breath you should return to the doctor/ER sooner. All discharge instructions reviewed with patient and/or family. Voiced understanding. Scripts Tramadol HCl (Ultram) 50 Mg Tablet 50 MG PO Q6H PRN for BREAKTHROUGH PAIN for 7 Days, #14 TAB 0 Refills Prov: KHAI SANTOYO 01/27/18 Cephalexin (Keflex) 500 Mg Capsule 500 MG PO QIDACHS for 7 Days, #28 CAP 0 Refills Prov: KHAI SANTOYO 9/3/18 Work/School Note: Work Release Form Date Seen in the Emergency Department: Jan 27, 2018 Return to Work: Jan 31, 2018 Restrictions: No Restrictions Copy Copies To 1: TESSIE WORTHY TITUS J Jan 27, 2018 09:58
[2018-01-27] MEDS ORDERED: CEPH-507 PO (10:05)
[2018-01-27] MEDS ORDERED: TRAM-42 PO (10:05)
[2018-01-27 10:10] VITALS: BP 141/84
== END 2018-01-27 10:10 | disposition home or self-care (01) ==
LOC: EDUNIT# 09:15 → ER 09:18
DX: L03.115 Cellulitis of right lower limb (principal); M79.89 Other specified soft tissue disorders; F17.210 Nicotine dependence, cigarettes, uncomplicated; F41.9 Anxiety disorder, unspecified; F32.9 Major depressive disorder, single episode, unspecified
CPT/HCPCS: 99283

== ENCOUNTER 2021-04-28 05:34 | Outpatient (RCR) | payer BC ==
[~2021-04-28] VITALS: Ht 177.8 cm; Wt 67.8 kg
[~2021-04-28 05:34] MED LIST: BUDE10.26 IH; BUSP10TA95 PO; CEPH-507 PO; FOLI1TAB33 PO; HYDR-700 PO; PANT40TA52 PO; PRAV40TA2 PO; PROP40TA5 PO; TR1C15 TP; TRAM-42 PO
== END 2021-04-28 12:07 | disposition home or self-care (01) ==
LOC: PREOP 05:34
PROVIDERS: ATTEND Surgery
DX: Z01.812 Encounter for preprocedural laboratory examination (principal); K21.9 Gastro-esophageal reflux disease without esophagitis; R63.4 Abnormal weight loss; Z20.822 Contact with and (suspected) exposure to COVID-19
CPT/HCPCS: 87635

== ENCOUNTER 2021-05-02 09:55 | Day surgery (SDC) | payer BC ==
[~2021-05-02] VITALS: Ht 178 cm; Wt 68.0 kg
[2021-05-02] VITALS (7 sets, daily range): BP systolic 133–165; BP diastolic 74–110
[2021-05-02] MEDS ORDERED: LACTATED RINGERS 1,000 ML IV ONE (10:04)
[2021-05-02] MEDS ORDERED: LACTATED RINGERS 1,000 ML IV STA (10:05)
[2021-05-02] MEDS ORDERED: MIDAZOLAM 2 MG/2 ML (VERSED) VIAL ONE (11:52)
[2021-05-02] MEDS ORDERED: PROPOFOL INJECTION 50 ML IV ONE ×2 (11:53→12:17)
--- NOTE | 2021-05-02 13:15 | Progress Note-Post Operative ---
Post-Operative Progess Note Surgeon (s)/Pinion Staker (s) Surgeon ANITA HAIRSTON DO Pinion Staker: na Pre-Operative Diagnosis wt loss, gerd Post-Operative Diagnosis duodenits, hiatal hernia, colon polyps, mucosal change ileum and rectum, diverticulosis Procedure & Operative Findings Date of Procedure 05/02/21 Procedure Performed/Findings egd c biopsies, colonoscopy c cold biopsy of ileum and rectum, hot bx polypectomy x 1 and snare polypectomy x 5 Anesthesia Type per shearer screen measurer and trimmer Estimated Blood Loss Estimated blood loss (mL): none Specimens/Packing Specimens Removed duodenum, ge, antrum, ileum, rectum and polyps ANITA HAIRSTON DO May 02, 2021 13:14
--- NOTE | 2021-05-02 13:16 | Discharge Inst-Simple/Standard ---
Discharge Inst-Standard Patient Instructions/Follow Up Plan of Care/Instructions/FU: 2 weeks Eddie Activity as Tolerated: Yes Discharge Diet: Regular Diet (high fiber diet) ANITA HAIRSTON DO May 02, 2021 13:16
--- NOTE | 2021-05-02 15:14 | Anesthesia-General Post-Op ---
MAC Patient Condition Mental Status/LOC: Same as Preop Cardiovascular: Satisfactory Nausea/Vomiting: Absent Respiratory: Satisfactory Pain: Controlled Complications: Absent Post Op Complications Complications None Follow Up Care/Instructions Patient Instructions None needed. Anesthesiology Discharge Order Discharge Order Patient is doing well, no complaints, stable vital signs, no apparent adverse anesthesia problems. No complications reported per nursing. VAUGHN RIVERA CRNA May 02, 2021 15:14
--- NOTE | 2021-05-02 20:07 | OPERATIVE REPORT ---
DATE OF SERVICE: 05/02/2021 PREOPERATIVE DIAGNOSES: Weight loss and gastroesophageal reflux disease. POSTOPERATIVE DIAGNOSES: Duodenitis, hiatal hernia, colon polyps, mucosal change in ileum and rectum, and diverticulosis. PROCEDURES PERFORMED: EGD with biopsies, colonoscopy with cold biopsy of the ileum and rectum, hot biopsy polypectomy x1, and snare polypectomy x5. SURGEON: Anita Morgan DO. ANESTHESIA: Per UTILITY PIPE LAYER. ESTIMATED BLOOD LOSS: None. COMPLICATIONS: None. INDICATIONS FOR PROCEDURE: The patient is a 60-year-old male, who has had weight loss and GERD symptoms. He understands the risks and benefits of the procedure and wishes to proceed. Consent was signed in the chart. DESCRIPTION OF PROCEDURE: The patient was taken to the endoscopy suite and placed in a left lateral recumbent position. A timeout was performed. Scope was inserted in the mouth, down the esophagus, stomach and into the duodenum without any difficulties. There were no polyps, masses or ulcerations in the second portion of the duodenum. In the first portion of duodenum, duodenitis features are present. Biopsy of the duodenum was obtained. Scope was slowly retracted back into stomach, where it was further insufflated. No polyps, masses or ulcerations. Biopsy of the antrum was obtained. Scope was retroflexed noting a hiatal hernia and no other pathology. Scope was returned to its normal position, slowly withdrawn to distal esophagus. Biopsy of the GE junction was obtained. No polyps, masses or ulcerations. Scope was slowly retracted back until completely removed. The patient then had colonoscopy performed. Digital rectal exam was performed. Some slight prolapse was present, which was able to be reduced without difficulty. No palpable polyps, masses or ulcerations. Scope was inserted in the rectum, advanced all the way to the cecum with minimal difficulty. The cecum had no polyps, masses or ulcerations. The ileocecal valve was then intubated, slight mucosal change on the inside, right near the ileocecal valve, and cold biopsy was obtained. No other polyps, masses or ulcerations. Scope was slowly retracted back. Scope was then continuously slowly retracted back. No polyps, masses or ulcerations. In the ascending colon and transverse colon, there were two polyps, which snare polypectomies were performed. Scope was then continuously slowly retracted back. No polyps, masses or ulcerations within the descending colon. In the sigmoid colon, another polyp was present, which snare polypectomy was performed. Another polyp was present in the sigmoid colon, which hot biopsy polypectomy was performed. Scope was then continuously slowly retracted back into the rectum, where another polyp was present, which snare polypectomy was performed. Scope was retroflexed noting some mucosal change of the rectum, no other pathology. Cold biopsy of the mucosal change was obtained. Scope was returned to its normal position, slowly withdrawn until completely removed. The patient tolerated the procedure well without any complications and taken to the recovery room in a stable condition. RECOMMENDATIONS: The patient will follow up on biopsy results. We will also discuss radiological studies to assist in trying to find a cause of weight loss if he continuously losses weight. CC: [facility] - requested, unable to deliver. Job ID: [id number] DocumentID: [id number] Dictated Date: 05/02/2021 13:20:47 Mica Washer Gluer Date: 05/02/2021 20:07:23 Dictated By: ANITA MORGAN DO
== END 2021-05-02 14:05 | disposition home or self-care (01) ==
LOC: ENDO 09:55
PROVIDERS: ATTEND Surgery
DX: D12.3 Benign neoplasm of transverse colon (principal); K21.00 Gastro-esophageal reflux disease with esophagitis, without bleeding; K29.50 Unspecified chronic gastritis without bleeding; K29.80 Duodenitis without bleeding; K44.9 Diaphragmatic hernia without obstruction or gangrene; K57.30 Diverticulosis of large intestine without perforation or abscess without bleeding; I10 Essential (primary) hypertension; F17.210 Nicotine dependence, cigarettes, uncomplicated; F32.A Depression, unspecified; F41.9 Anxiety disorder, unspecified; E78.00 Pure hypercholesterolemia, unspecified; Z79.52 Long term (current) use of systemic steroids; L40.8 Other psoriasis; Z79.899 Other long term (current) drug therapy

== ENCOUNTER → 2021-05-23 | Outpatient (CLI) | payer BC ==
[~2021-05-23] MED LIST changes: +HOLD METFORMIN - RECEIVED CONTRAST 20 ML VIAL IV SCH; +IOHEXOL 350 MG/ML 100 ML (OMNIPAQUE 350) VIAL IV ONE; +NS 100 ML (IVPB) BAG IV ONE
[2021-05-23 15:45] LABS: CREATININE SERUM 0.74 MG/DL (0.60-1.30)
--- NOTE | 2021-05-23 18:57 | Diagnostic Imaging Report ---
EXAMINATION: CT chest, abdomen and pelvis with intravenous contrast. TECHNIQUE: Multiple contiguous axial images were obtained through the chest, abdomen and pelvis after the uneventful administration of intravenous contrast. All CT scans use one or more of the following dose optimizing techniques: automated exposure control, MA and/or KvP adjustment based on patient size and exam type or iterative reconstruction. HISTORY: UNINTENTIONAL WEIGHT LOSS COMPARISON: None available. FINDINGS: Thyroid: The visualized thyroid gland is normal. Mediastinum: Heart size is normal without significant pericardial effusion. Mild aneurysmal dilatation of the ascending thoracic aorta measures 4.2 cm. No suspicious lymphadenopathy. Lungs and airways: The lungs are clear without consolidation, pleural effusion, or pneumothorax. No suspicious pulmonary lesion. The airways are normal. Solid organs: The liver is normal without focal lesion. Multiple layering hyperdense stones within the gallbladder. There is no biliary ductal dilation. Pancreas is normal. Spleen is normal. Adrenal glands are normal. The kidneys are normal without hydronephrosis. Bowel: The stomach and small bowel are normal without obstruction. The colon and appendix are normal. Peritoneum: There is no intraperitoneal free fluid or free air. No suspicious lymphadenopathy. Vasculature: Calcification of the aorta without aneurysm. Musculoskeletal: No suspicious osseous lesion or compression fracture. Pelvis: The prostate gland is normal. The urinary bladder is normal. IMPRESSION: 1. No acute abnormality in the abdomen or pelvis. 2. Cholelithiasis. 3. Mild aneurysmal dilatation of the ascending thoracic aorta measuring up to 4.2 cm. Dictated by: Dictated on workstation # [id number]
== END ==
LOC: RAD 16:15
PROVIDERS: ATTEND Surgery
DX: K80.20 Calculus of gallbladder without cholecystitis without obstruction (principal); I71.2 Thoracic aortic aneurysm, without rupture
CPT/HCPCS: 36415; 71260; 74177; 82565; 84520

== ENCOUNTER 2021-06-22 05:37 | Outpatient (CLI) | payer BC ==
[~2021-06-22] VITALS: Ht 172.2 cm; Wt 71.4 kg
[~2021-06-22 05:37] MED LIST changes: -HOLD METFORMIN - RECEIVED CONTRAST 20 ML VIAL IV SCH; -IOHEXOL 350 MG/ML 100 ML (OMNIPAQUE 350) VIAL IV ONE; -NS 100 ML (IVPB) BAG IV ONE
[2021-06-24] MEDS ORDERED: PROCTO MED HC (10:13)
== END 2021-06-24 10:23 | disposition home or self-care (01) ==
LOC: PREOP 05:37
PROVIDERS: ATTEND Surgery
DX: Z01.818 Encounter for other preprocedural examination (principal)

== ENCOUNTER 2021-06-29 06:51 | Day surgery (SDC) | payer BC ==
[2021-06-29] VITALS (12 sets, daily range): BP systolic 130–159; BP diastolic 64–100
[~2021-06-29] VITALS: Ht 172.2 cm; Wt 71.4 kg
[~2021-06-29 06:51] MED LIST changes: +PROCTO MED HC
[2021-06-29] MEDS ORDERED: LACTATED RINGERS 1,000 ML IV PRN (07:45)
--- NOTE | 2021-06-29 08:00 | Progress Note-Pre Operative ---
Pre-Operative Progress Note H&P Reviewed The H&P was reviewed, patient examined and no changes noted. Date Seen by Provider: Jun 29, 2021 Time Seen by Provider: 08:00 Date H&P Reviewed: Jun 29, 2021 Time H&P Reviewed: 08:00 Pre-Operative Diagnosis: cholelithiasis ANITA HAIRSTON DO Jun 29, 2021 08:00
[2021-06-29] MEDS ORDERED: LIDOCAINE/EPI 1%-1:200,000 (XYLOCAINE) 30 ML VIAL ONE (08:04)
[2021-06-29] MEDS ORDERED: proPOfol 200 MG/20 ML (DIPRIVAN) VIAL IV ONE (08:23)
[2021-06-29] MEDS ORDERED: MIDAZOLAM 2 MG/2 ML (VERSED) VIAL ONE (08:23)
[2021-06-29] MEDS ORDERED: NEOSTIGMINE 3 MG/3 ML VIAL ONE (08:23)
[2021-06-29] MEDS ORDERED: GLYCOPYRROLATE 0.2 MG/ML (ROBINUL) 2 ML VIAL ONE (08:23)
[2021-06-29] MEDS ORDERED: LIDOCAINE PF 2% 5 ML (XYLOCAINE) VIAL ONE (08:23)
[2021-06-29] MEDS ORDERED: ONDANSETRON 4 MG/2 ML (SDV) Z0FRAN ONE (08:23)
[2021-06-29] MEDS ORDERED: fentaNYL INJ 100 MCG/2 ML AMP ONE (08:23)
[2021-06-29] MEDS ORDERED: ceFAZolin INJECTION 1,000 MG ONE (08:28)
[2021-06-29] MEDS ORDERED: HYDROmorphone 2 MG/ML VIAL (DILAUDID) ONE (09:02)
[2021-06-29] MEDS ORDERED: ROCURONIUM 50 MG/5 ML (ZEMURON) VIAL IV ONE (09:41)
[2021-06-29] MEDS ORDERED: SEVOFLURANE (ULTANE) 15 ML INHAL SOLN ONE (09:42)
[2021-06-29] MEDS ORDERED: DOCU-143 PO (09:43)
[2021-06-29] MEDS ORDERED: ACHD5005 PO (09:43)
--- NOTE | 2021-06-29 09:45 | Discharge Inst-Simple/Standard ---
Discharge Inst-Standard Discharge Medications New, Converted or Re-Newed RX: Transmitted to Pharmacy Patient Instructions/Follow Up Plan of Care/Instructions/FU: 2 weeks Eddie Activity as Tolerated: No Discharge Diet: Regular Diet Other Inst to Patient Follow up Appt: Make appointment for 2 weeks. Instructions: No lifting greater than 10 pounds. No strenuous activity. May shower in 24 hours, no tub bath or soaking. Use incentive spirometer at home as directed. No Smoking Skin/Wound Care: You have special glue over incision, it will fall off on it's own. Symptoms to Report: Appetite Changes, Extremity Discoloration, Numbness/Tingling, Swelling Increased, Bleeding Excessive, Eyesight Changes, Pain Increased, Urine Color Change, Constipation(Persistent), Fever over 101 degree F, Pain/Pressure in chest, Urinating Difficulty, Cough Up/Vomit Blood, Heart Beat Irreg/Pounding, Pain/Pressure in jaw, Vaginal Bleeding Increase, Cramps in feet or legs, Lightheadedness, Pain/Pressure in shoulder, Diarrhea(Persistent), Memory Changes Suddenly, Questions/Concerns, Weight gain consecutive days, Dizziness/Fainting, Nausea/Vomiting, Shortness of Breath, Weight gain over 2 pounds. If eyes or skin turn yellow notify physician. If questions or concerns contact your physician Or seek help at emergency department. ANITA HAIRSTON DO Jun 29, 2021 09:44
--- NOTE | 2021-06-29 09:48 | Progress Note-Post Operative ---
Post-Operative Progess Note Surgeon (s)/Vp Public Relations (s) Surgeon ANITA HAIRSTON DO Vp Public Relations: Dr. Vanegas to assist in retraction dissection and closure. Pre-Operative Diagnosis cholelithiasis Post-Operative Diagnosis cholelithiasis, liver mass Procedure & Operative Findings Date of Procedure 06/29/21 Procedure Performed/Findings PROCEDURE: Laparoscopic cholecystectomy with intraoperative cholangiogram Brayden-cut biopsy of liver x 2. COMPLICATIONS: None. PROCEDURE: The patient was taken to the operating suite and was prepped and draped in sterile fashion. A surgical pause was performed. Just superior to the umbilicus, a 12 mm incision was made. Dissection was taken down to the fascia, which was then scored and grasped with a Omaira and the abdomen was then entered. A 0 Vicryl suture was placed in a [id number]-[id number] fashion and a Orta trocar was placed and secured. Pneumoperitoneum was achieved. A 5mm trochar place in the subxyphoid and 2 in the right upper quadrant. Liver surface cephalad to gallbladder had about 2-3 cm mass appearance. The gallbladder was then grasped and elevated. The cystic duct, and cystic artery were then dissected out. Clip was placed on the distal portion of the cystic duct which was then partially transected. An arrow catheter was inserted into the duct. The cholangiogram was then performed. No filing defects and contrast made its way into the duodenum. Catheter removed. Clips were placed on proximal portion of the cystic duct and then the duct was then transected. Clips were placed along the proximal and distal portion of the cystic artery which was then transected. Hook cautery was used to dissect the gallbladder from the gallbladder fossa achieving hemostasis. The gallbladder was placed in an Endobag and removed through the 12 mm trocar site. The abdomen was then reinspected. Copious amounts of irrigation were used to irrigate the abdomen and there were no signs of active bleeding. Hemostasis had been achieved. Sugicel was placed in gallbladder fossa. Two brayden-cut biopsies were taken of the liver and cautery was used to achieve hemostasis. The 12 mm fascial defect was then closed with 0 Vicryl suture that had been placed in a oymkio-ju-[id number] fashion. The abdomen was then desufflated, the trocars were removed. The abdomen was then washed and dried. The skin was then closed using 4-0 Monocryl in a subcuticular fashion. The abdomen was washed and dried and Skin Affix was place over incisions. Patient tolerated the procedure well without any complications and was taken to the recovery room in stable condition. Anesthesia Type general Estimated Blood Loss Estimated blood loss (mL): minimal Specimens/Packing Specimens Removed gallbladder, liver biopsies ANITA HAIRSTON DO Jun 29, 2021 09:48
--- NOTE | 2021-06-29 09:49 | Diagnostic Imaging Report ---
INDICATION: Cholecystectomy Operative cholangiogram performed in the routine fashion. 46 images were obtained. 9.9 seconds of fluoroscopy time was used. Contrast was injected through the cystic duct stump. The biliary tree is nondilated. There are no filling defects in the biliary tree. Contrast passes to the duodenum without obstruction. IMPRESSION: Unremarkable operative cholangiogram. Dictated by: Dictated on workstation # [id number]
[2021-06-29] MEDS ORDERED: HYDROmorphone 2 MG/ML VIAL (DILAUDID) IV ONE (10:15)
[2021-06-29] MEDS ORDERED: ONDANSETRON 4 MG/2 ML (SDV) Z0FRAN IVP PRN (10:15)
[2021-06-29] MEDS ORDERED: morphine INJ 10 MG/ML 1ML (SYR OR VIAL) IVP ONE (10:15)
--- NOTE | 2021-06-29 10:41 | Anesthesia-General Post-Op ---
General Patient Condition Mental Status/LOC: Same as Preop Cardiovascular: Satisfactory Nausea/Vomiting: Absent Respiratory: Satisfactory Pain: Controlled Complications: Absent Post Op Complications Complications None Follow Up Care/Instructions Patient Instructions None needed. Anesthesia/Patient Condition Patient Condition Patient is doing well, no complaints, stable vital signs, no apparent adverse anesthesia problems. CONNER PIMENTEL DO Jun 29, 2021 10:41
[2021-06-29] MEDS ORDERED: HYDROcodone/APAP 5 MG/325 MG (LORTAB) TAB ONE (11:03)
[2021-06-29] MEDS ORDERED: HYDROcodone/APAP 5 MG/325 MG (LORTAB) TAB PO ONE (11:15)
== END 2021-06-29 12:00 ==
LOC: SDC 06:51
PROVIDERS: ATTEND Surgery
DX: K80.10 Calculus of gallbladder with chronic cholecystitis without obstruction (principal); D13.5 Benign neoplasm of extrahepatic bile ducts; K76.0 Fatty (change of) liver, not elsewhere classified; I10 Essential (primary) hypertension; K21.9 Gastro-esophageal reflux disease without esophagitis; F32.A Depression, unspecified; F41.9 Anxiety disorder, unspecified; I71.2 Thoracic aortic aneurysm, without rupture; E78.00 Pure hypercholesterolemia, unspecified; F17.210 Nicotine dependence, cigarettes, uncomplicated; Z79.899 Other long term (current) drug therapy
CPT/HCPCS: 76000; 87081; 88304; 88307; 88313

== ENCOUNTER → 2021-08-17 | Outpatient (CLI) | payer BC ==
[~2021-08-17] VITALS: Ht 177 cm; Wt 70.0 kg
[~2021-08-17] MED LIST changes: +ACHD5005 PO; +CATHETER FLUSH 10 ML SYR IVP PRN; +DOCU-143 PO
[2021-08-17 08:47] VITALS: BP 149/92
--- NOTE | 2021-08-17 10:54 | NUCLEAR STRESS TEST ---
TREADMILL NUCLEAR STRESS TEST Date of procedure: 08/17/2021. Primary care provider: [facility]. Admitting physician: Ernie Santoyo Jr., MD. INDICATION: Abnormal electrocardiogram. BASELINE ELECTROCARDIOGRAM: Sinus rhythm with possible old anteroseptal myocardial infarction STRESS TEST PROCEDURE: The patient was exercised for a total of 7 minutes and 45 seconds of the standard Colton protocol achieving a maximum MET level of 9.3. The resting heart rate was 62 bpm and the peak heart rate was 142 bpm, which represents 89% of the maximum predicted heart rate. The resting blood pressure was 149/92 mmHg and the peak blood pressure was 198/115 mmHg. This represents a normal heart rate and a normal blood pressure response to exercise. The test was stopped due to fatigue. There was no chest discomfort during the test. There were no arrhythmias during the test. There were positive stress induced electrocardiogram changes with approximately 1.[address] depression in the inferolateral leads that improved in recovery. The patient exhibited good exercise capacity for age. NUCLEAR PROCEDURE: The patient was administered 10.6 mCi of intravenous technetium 99m Tetrofosmin at rest for the rest images. The patient was subsequently administered 28.7 mCi of intravenous technetium 99 M Tetrofosmin at peak stress for the stress images. Following an appropriate wait after each injection, imaging was obtained. The images were subsequently processed and reformatted in the usual views. Gated imaging was obtained. The image quality was adequate with a mild degree of gastrointestinal attenuation artifact. CT attenuation correction was used as a adjunct to standard imaging. Both the corrected and uncorrected images were reviewed for interpretation. NUCLEAR RESULTS: There was normal myocardial perfusion in all segments without evidence of infarction or ischemia. There was normal left ventricular chamber size with an end-diastolic volume of 57 mL and an end-systolic volume of 13 mL. There was no evidence of transient ischemic dilatation. The TID ratio was 0.88. There was normal wall motion in all segments with a calculated ejection fraction of 77%. IMPRESSION: 1. Normal heart rate and blood pressure response to exercise. 2. There was no chest discomfort or arrhythmias during the test. 3. There were positive stress induced electrocardiogram changes that improved in recovery. 4. The patient exhibited good exercise capacity for age at 7 minutes and 45 seconds of the Colton protocol. 5. There was normal myocardial perfusion in all segments without evidence of infarction or ischemia. 6. There was normal wall motion in all segments with a calculated ejection fraction of 77%. 8. This is a normal study other than the abnormal electrocardiogram changes during stress. This represents an overall low risk for possible future coronary ischemic events. Certain portions of this document may have been dictated utilizing voice recognition technology. Inherent to this technology, typographical and grammatical errors may exist. As much as I am diligent to identify and correct these mistakes, some errors may remain in the document. ERNIE SANTOYO JR, MD Aug 17, 2021 10:54
== END ==
LOC: CARD 07:30
PROVIDERS: ATTEND Internal Medicine Cardiovascular Disease
DX: R94.31 Abnormal electrocardiogram [ECG] [EKG] (principal)
CPT/HCPCS: 78452; 93017; A9502

== ENCOUNTER → 2021-08-25 | Outpatient (CLI) | payer BC ==
[~2021-08-25] MED LIST changes: -CATHETER FLUSH 10 ML SYR IVP PRN
== END ==
LOC: CARD 15:00
PROVIDERS: ATTEND Internal Medicine Cardiovascular Disease
DX: I35.8 Other nonrheumatic aortic valve disorders (principal); I35.1 Nonrheumatic aortic (valve) insufficiency
CPT/HCPCS: 93306